=== PATIENT | female | born 1995 | race Caucasian/White ===

== ENCOUNTER 2019-07-10 21:45 | Emergency (ER) | payer MEDICAID ==
[~2019-07-10] VITALS: Ht 165.1 cm; Wt 143.8 kg
[2019-07-10 21:45] VITALS: BP 141/69
--- NOTE | 2019-07-10 21:45 | NUR ---
PT ALEJANDRO ON GURNEY TO BED #11
--- NOTE | 2019-07-10 21:47 | NUR ---
PT CAME INTO ER BY [facility] WITH C/O ANXIETY ATTACK. PT STATED HER BOYFRIEND WAS SUPPOSED TO PICK HER UP, WHEN HE DIDNT SHOW SHE HAD AN ANXIETY ATTACK AND CALLED 911. PT IS ALERT AND ORIENTED X4. PT STATED SHE IS 33 WEEKS AND IS CURRENTLY WITH AN OBGYN. DUE DATE IS PER PT. LMP WAS . PT IS . PT DENIES PAIN 0/10 AT THIS TIME. ERMD MADE AWARE OF STATUS. SAFETY MEASURES IN PLACE.
--- NOTE | 2019-07-10 21:47 | NUR ---
PT AMBULATED TO THE RESTROOM INDEPENDANTLY
--- NOTE | 2019-07-10 22:10 | NUR ---
ATTEMPTED TO LISTEN FOR FHT, CALLED L AND D TO CHECK FHT TO CONFIRM
--- NOTE | 2019-07-10 22:15 | NUR ---
L &D NURSE IS AT BEDSIDE
[2019-07-10 22:30] VITALS: BP 141/69
--- NOTE | 2019-07-10 22:30 | NUR ---
Patient discharged with v/s stable. Written and verbal after care instructions given and explained. Patient verbalized understanding. Ambulatory with steady gait. All questions addressed prior to discharge. Advised to follow up with PMD. PT STATED SHE NO LONGER HAD ANXIETY PRIOR TO DC
== END 2019-07-10 22:30 | disposition home or self-care (01) ==
LOC: MED 21:45
DX: O99.343 Other mental disorders complicating pregnancy, third trimester (principal); F41.9 Anxiety disorder, unspecified; Z3A.31 31 weeks gestation of pregnancy
CPT/HCPCS: 99281